=== PATIENT | female | born 1955 | race African-American/Black ===

== ENCOUNTER 2016-12-02 10:17 | Emergency (ER) | payer MEDICAID ==
[~2016-12-02] VITALS: Ht 144.8 cm; Wt 72.6 kg
[2016-12-02 10:39] VITALS: BP 202/82
--- NOTE | 2016-12-02 10:41 | NUR ---
Patient ambulated to bed 4. RN evaluating patient at bedside.
--- NOTE | 2016-12-02 10:42 | NUR ---
Dr. Dumas evaluating patient at bedside.
--- NOTE | 2016-12-02 10:44 | NUR ---
PATIENT PRESENTS TO ED WITH C/O HIGH BLOOD PRESSURE . PT STATES SHE RUN OUT OF MEDICINE. DENIES N/V/D; SKIN IS PINK/WARM/DRY; AAOX4 WITH EVEN AND STEADY GAIT; LUNGS CLEAR BL; HR EVEN AND REGULAR; PT DENIES ANY FEVER, CP, SOB, OR COUGH AT THIS TIME; PATIENT STATES PAIN OF 0/10 AT THIS TIME;PATIENT POSITIONED FOR COMFORT; HOB ELEVATED; BEDRAILS UP X2; BED DOWN.ALL MONITORS IN PLACED; ER MD MADE WILL BE NOTIFIED;
[2016-12-02] MEDS ORDERED: LISINOPRIL 20 MG TAB PO STA (11:11)
--- NOTE | 2016-12-02 11:36 | NUR ---
PT INSIST TO GO HOME;EVEN BP STILL HIGH;
[2016-12-02 11:37] VITALS: BP 190/116
--- NOTE | 2016-12-02 11:37 | NUR ---
Patient discharged with v/s stable. Written and verbal after care instructions given and explained. Patient alert, oriented and verbalized understanding of instructions. Ambulatory with steady gait. All questions addressed prior to discharge. ID band removed. Patient advised to follow up with PMD. Rx of LISINOPRIL given. Patient educated on indication of medication including possible reaction and side effects. Opportunity to ask questions provided and answered.
== END 2016-12-02 11:37 | disposition home or self-care (01) ==
LOC: MED 10:17
DX: Z76.0 Encounter for issue of repeat prescription (principal); I10 Essential (primary) hypertension; R94.31 Abnormal electrocardiogram [ECG] [EKG]
CPT/HCPCS: 93005; 99283

== ENCOUNTER 2018-02-14 07:14 | Emergency (ER) | payer SELFPAY ==
[~2018-02-14] VITALS: Ht 152.4 cm; Wt 73.5 kg
[2018-02-14 07:17] VITALS: BP 183/97
--- NOTE | 2018-02-14 07:26 | NUR ---
PT BIB SELF W/ C/O BL LEG/ANKLE PAIN X 2 MONTHS. PT PRESENTS W/ BL SWELLING W/ 3+ PITTING EDEMA NOTED TO RIGHT LEG. CAP REFILL LESS THAN 3 SECONDS. PULSES PALPABLE BL. PT DENIES INJURY OR TRAUMA. AMBULATORY W/ STEADY GAIT. PATIENT STATES PAIN OF 7/10 AT THIS TIME; VSS; PATIENT POSITIONED FOR COMFORT; HOB ELEVATED; BEDRAILS UP X2; BED DOWN. ER MD MADE AWARE OF PT STATUS.
[2018-02-14 08:03] LABS: BASOPHILS % (AUTO) 0.9 % (0.0-2.0); EOSINOPHILS # (AUTO) 0.3 K/uL (0-0.4); EOSINOPHILS % (AUTO) 5.3 % (0.0-4.0); HEMATOCRIT 37.9 % (36-48); HEMOGLOBIN 12.5 g/dL (12.0-16.0); LYMPHOCYTES # (AUTO) 2.4 K/uL (2.5-16.5); LYMPHOCYTES % (AUTO) 45.7 % (20.5-51.1); MEAN CORPUSCULAR HEMOGLOBIN 28 pg (27-31); MEAN CORPUSCULAR HGB CONC 33 g/dL (33-37); MEAN CORPUSCULAR VOLUME 84.2 fL (80-94); MONOCYTES # (AUTO) 0.4 K/uL (0.8-1.0); MONOCYTES % (AUTO) 6.9 % (1.7-9.3); NEUTROPHILS # (AUTO) 2.2 K/uL (1.8-7.7); NEUTROPHILS % (AUTO) 41.2 % (42.2-75.2); PLATELET COUNT (AUTO) 425 K/uL (140-450); WHITE BLOOD COUNT (AUTO) 5.4 K/uL (4.8-10.8)
[2018-02-14 08:55] VITALS: BP 183/97
--- NOTE | 2018-02-14 08:56 | NUR ---
Patient discharged with elevated BP, ed md aware. Written and verbal after care instructions given and explained. Patient alert, oriented and verbalized understanding of instructions. Ambulatory with steady gait. All questions addressed prior to discharge. ID band removed. Patient advised to follow up with PMD. Rx of motrin given. Patient educated on indication of medication including possible reaction and side effects. Opportunity to ask questions provided and answered.
== END 2018-02-14 08:56 | disposition home or self-care (01) ==
LOC: MED 07:14
DX: T63.481A Toxic effect of venom of other arthropod, accidental (unintentional), initial encounter (principal); R60.0 Localized edema; I10 Essential (primary) hypertension; Y92.89 Other specified places as the place of occurrence of the external cause; W57.XXXA Bitten or stung by nonvenomous insect and other nonvenomous arthropods, initial encounter; Y93.89 Activity, other specified; Y99.8 Other external cause status
CPT/HCPCS: 36415; 73610; 84550; 85025; 93971; 99285; Q0092

== ENCOUNTER 2018-06-13 00:13 | Emergency (ER) | payer BC, OTHER ==
[~2018-06-13] VITALS: Ht 144.8 cm; Wt 71.3 kg
[2018-06-13 00:22] VITALS: BP 192/94
--- NOTE | 2018-06-13 00:25 | NUR ---
PT TAKEN TO BED 11
--- NOTE | 2018-06-13 00:33 | NUR ---
PT PRESENTS TO ED WITH C/O RT HAND PAIN. PT DENIES INJURY. RT HAND SWOLLEN AND PT STATES PAINFUL TO MOVE FINGERS. PAIN 10/
--- NOTE | 2018-06-13 00:33 | NUR ---
Dr. Saul evaluating patient at bedside.
[2018-06-13] MEDS ORDERED: IBUPROFEN 800 MG TAB PO ONE (00:40)
--- NOTE | 2018-06-13 00:51 | NUR ---
X-Ray at bedside.
[2018-06-13] MEDS ORDERED: predniSONE 20 MG TAB PO ONE (01:10)
[2018-06-13 01:30] VITALS: BP 192/94
--- NOTE | 2018-06-13 01:30 | NUR ---
Patient discharged with v/s stable. Written and verbal after care instructions given and explained. Patient alert, oriented and verbalized understanding of instructions. Ambulatory with steady gait. All questions addressed prior to discharge. ID band removed. Patient advised to follow up with PMD. Rx of predisone given. Patient educated on indication of medication including possible reaction and side effects. Opportunity to ask questions provided and answered.
== END 2018-06-13 01:30 | disposition home or self-care (01) ==
LOC: MED 00:13
DX: M10.031 Idiopathic gout, right wrist (principal); I10 Essential (primary) hypertension
CPT/HCPCS: 36415; 73110; 84550; 99284; J7512; Q0092

== ENCOUNTER 2018-08-20 10:26 | Emergency (ER) | payer BC ==
[~2018-08-20] VITALS: Ht 144.8 cm; Wt 72.6 kg
[2018-08-20 10:43] VITALS: BP 136/62
[2018-08-20] MEDS ORDERED: METO100T14 PO (10:48)
[2018-08-20] MEDS ORDERED: LISI-420 PO (10:48)
[2018-08-20] MEDS ORDERED: HYDR25TA32 PO (10:48)
--- NOTE | 2018-08-20 10:51 | NUR ---
PT IN WHEELCHAIR TO ER BED 10
--- NOTE | 2018-08-20 10:55 | NUR ---
63 Y FEMALE BROUGHT IN BY CO-WORKER FROM [facility] PT IS A NURSE ASSIST , CARING FOR PT STRAINING TO HELP HEAVY PT C/O SUDDEN ONSET OF SOB WITH EPIGASTRIC PAIN NON RADIATING , SELF LIMITING AFTER FEW MINUTES. LUNGS CLEAR BILATERALLY. SPEECH IS CLEAR. AA0X4. VSS AT THIS TIME. BED IS DOWN, LOCKED, BED RAIL X 1, ERMD NOTIFIED. HX--HTN, RX---METOPROLOL, LISINOPRIL, HCTZ
--- NOTE | 2018-08-20 11:01 | NUR ---
RAD AT BEDSIDE
[2018-08-20] MEDS ORDERED: NACL 0.9% 500 ML IV ONE (11:05)
[2018-08-20] MEDS ORDERED: KETOROLAC 30 MG/ML VIAL IVP ONE (11:05)
[2018-08-20] MEDS ORDERED: ASPIRIN 81 MG TAB.CHEW PO ONE (11:05)
--- NOTE | 2018-08-20 11:33 | NUR ---
lab at bedside
[2018-08-20] MEDS ORDERED: HYDROcodone/APAP 7.5/325 MG 1 TAB PO ONE (11:50)
[2018-08-20 12:08] LABS: BASOPHILS # (AUTO) 0.1 K/uL (0.00-0.22); BASOPHILS % (AUTO) 1.4 % (0.0-2.0); EOSINOPHILS # (AUTO) 0.2 K/uL (0-0.4); EOSINOPHILS % (AUTO) 3.3 % (0.0-4.0); HEMATOCRIT 39.7 % (36-48); HEMOGLOBIN 13.3 g/dL (12.0-16.0); LYMPHOCYTES % (AUTO) 32.7 % (20.5-51.1); MEAN CORPUSCULAR HEMOGLOBIN 29 pg (27-31); MEAN CORPUSCULAR HGB CONC 34 g/dL (33-37); MEAN CORPUSCULAR VOLUME 87.7 fL (80-94); MONOCYTES # (AUTO) 0.5 K/uL (0.8-1.0); MONOCYTES % (AUTO) 7.8 % (1.7-9.3); NEUTROPHILS # (AUTO) 3.4 K/uL (1.8-7.7); NEUTROPHILS % (AUTO) 54.8 % (42.2-75.2); PLATELET COUNT (AUTO) 283 K/uL (140-450); RED BLOOD CELL COUNT(AUTO) 4.52 MIL/uL (4.20-5.40); RED CELL DISTRIBUTION WIDTH 14.8 % (11.6-13.7); WHITE BLOOD COUNT (AUTO) 6.2 K/uL (4.8-10.8)
[2018-08-20 12:44] LABS: ANION GAP 11.2 (8-16); CARBON DIOXIDE 29.9 mmol/L (21-32); CREATININE 0.9 mg/dL (0.6-1.3); POTASSIUM 3.1 mmol/L (3.5-5.1)
[2018-08-20 12:50] LABS: ALBUMIN 3.5 g/dL (3.4-5.0); TOTAL BILIRUBIN 0.3 mg/dL (0.0-1.0)
[2018-08-20 13:15] LABS: PROTHROMBIN TIME 9.7 secs (10.8-13.4)
[2018-08-20] MEDS ORDERED: POTASSIUM CHLORIDE 10 MEQ TABER PO ONE (13:45)
[2018-08-20 14:04] VITALS: BP 135/72
== END 2018-08-20 14:05 | disposition home or self-care (01) ==
LOC: MED 10:26
DX: E87.6 Hypokalemia (principal); R07.89 Other chest pain; I10 Essential (primary) hypertension; Z79.899 Other long term (current) drug therapy
CPT/HCPCS: 36415; 71045; 80053; 81002; 81025; 83880; 84484; 85025; 85610; 93005; 96374; 99284; J1885; J7030; Q0092

== ENCOUNTER 2019-04-07 09:53 | Emergency (ER) | payer BC ==
[~2019-04-07] VITALS: Ht 152.4 cm; Wt 72.6 kg
[~2019-04-07 09:53] MED LIST: HYDR25TA32 PO; LISI-420 PO; METO100T14 PO
[2019-04-07 09:59] VITALS: BP 200/96
--- NOTE | 2019-04-07 10:03 | NUR ---
DEBBY COMPLETE. SENT TO [facility], AWAITING BED IN ED. MD AWARE OF BP. PT IS ASYMPTOMATIC.
--- NOTE | 2019-04-07 10:21 | NUR ---
pt ambulated to er bed 03
--- NOTE | 2019-04-07 10:36 | NUR ---
64 Y/O FEMALE PRESENTING WITH C/C OF REFILL FOR HTN MEDICATIONS, HAS NOT TAKEN MEDS X2 DAYS DUE TO HOLIDAYS. CURRENT BP AT 200 SBP. PER PT NKA. MEDICAL HX OF HTN. MEDS ON REGULAR BASIS FOR HTN. DENIES ANY OTHER S/S. SIDE RAIL X1.
[2019-04-07] MEDS ORDERED: LISINOPRIL 20 MG TAB PO ONE (10:55)
--- NOTE | 2019-04-07 11:00 | NUR ---
CALLED PHARMACY FOR LISINOPRIL
[2019-04-07 11:38] VITALS: BP 201/104
--- NOTE | 2019-04-07 11:38 | NUR ---
Pt's BP 201/104. Dr. Savage made aware. Dr. Savage okay with patient being discharged home. Pt denies headache or changes in vision upon discharge. Patient discharged with v/s stable. Written and verbal after care instructions given and explained. Patient alert, oriented and verbalized understanding of instructions. Pt advised to fill her prescriptions but to start lisinopril tomorow since she received a dose today. All questions addressed prior to discharge. ID band removed. Patient advised to follow up with PMD. Rx of Ibuprofen 600mg, and Lisinopril 40mg given. Patient educated on indication of medication including possible reaction and side effects. Opportunity to ask questions provided and answered.
== END 2019-04-07 11:38 | disposition home or self-care (01) ==
LOC: MED 09:53
DX: I10 Essential (primary) hypertension (principal); Z76.0 Encounter for issue of repeat prescription; Z79.899 Other long term (current) drug therapy
CPT/HCPCS: 99283

== ENCOUNTER 2019-10-09 12:36 | Emergency (ER) | payer BC ==
[~2019-10-09] VITALS: Ht 144.8 cm; Wt 67.1 kg
--- NOTE | 2019-10-09 12:36 | NUR ---
Patient BIBA ALS, transferred to bed 11. RN evaluating patient at bedside.
[2019-10-09 12:40] VITALS: BP 169/87
--- NOTE | 2019-10-09 12:42 | NUR ---
64 Y/O FEMALE BIBA C/O HIGH BLOOD PRESSURE. PT WORKS AT [employer] [facility] [employer] AND TOOK HER BP AT IT WAS IN THE 200S . PT STATES SEEING HER BP THAT HIGH MADE HER START FEELING ANXIOUS. PT DENIES PAULSON , BLURRED VISION , N/V . PT DENIES SOB. PT STATES SHE ONLY TOOK HER hctz, lisinopril FOR HER HTN TODAY. metoprolol ( PT STATES SHE IS CURRENTLY OUT OF THIS MEDICATION. PT CONNECTED TO [employer], PULSE OX AND BP. PT RESTING IN BED AT LOWEST POSITION, HOB ELEVATED, SIDE RAIL X1. PMH: HTN RX: LISINOPRIL , HCTZ, METOPROLOL
--- NOTE | 2019-10-09 13:01 | NUR ---
ERMD AT BEDSIDE FOR MSE.
[2019-10-09] MEDS ORDERED: METOPROLOL 50 MG TAB PO ONE (13:10)
[2019-10-09] MEDS ORDERED: IBUPROFEN 600 MG TAB PO ONE (13:10)
--- NOTE | 2019-10-09 13:54 | NUR ---
Pt states she is ready to leave. Dr. Savage notified.
--- NOTE | 2019-10-09 14:48 | NUR ---
Pt's BP is 207/112mmg, Dr. Savage notified. Per Dr's order, monitor pt's BP to wait for the medication to be effective.
--- NOTE | 2019-10-09 14:50 | NUR ---
Patient does not wish to proceed with medical care recommended by Dr. Savage. Patient given information related to possible complications, up to and including , which could occur as a result of leaving hospital at this time. Patient verbalizes understanding of risks involved leaving against medical advice. Patient has signed AMA form. Addendum: 10/09/[address] [facility] Educated pt to follow up with her PCP and monitor her BP at home and return back to ER if she has any dizziness, headache, SOB, CP, vision changes, weakness, or numbness sensation.
[2019-10-09 14:52] VITALS: BP 207/112
== END 2019-10-09 14:50 | disposition left against medical advice (07) ==
LOC: MED 12:36
DX: I10 Essential (primary) hypertension (principal); F41.9 Anxiety disorder, unspecified; Z79.899 Other long term (current) drug therapy
CPT/HCPCS: 99283